=== PATIENT | female | born 1990 | race Caucasian/White ===

== ENCOUNTER → 2017-03-27 | Outpatient (CLI) | payer OTHER | LOC: FIMAGING 16:35 | PROVIDERS: ATTEND Family Medicine | DX: J45.909 Unspecified asthma, uncomplicated (principal) ==

== ENCOUNTER → 2017-09-15 | Outpatient (CLI) | payer OTHER | LOC: BMCIMAGING 10:29 | PROVIDERS: ATTEND Emergency Medicine | DX: R05 Cough (principal); R09.89 Other specified symptoms and signs involving the circulatory and respiratory systems ==